=== PATIENT | male | born 1950 ===

== ENCOUNTER 2018-06-16 01:33 | Inpatient (IN) | payer OTHER ==
[~2018-06-16] VITALS: Ht 180.3 cm; Wt 120.2 kg
[2018-06-16] MEDS ORDERED: COZAAR100 MG (01:56)
[2018-06-16] MEDS ORDERED: VERAPAMIL ER240 MG (01:56)
[2018-06-16] MEDS ORDERED: TOPROL XL100 M1 (01:56)
[2018-06-16] MEDS ORDERED: ASA81 MG (01:57)
[2018-06-16] MEDS ORDERED: GLIMEPIRIDE2 MG (01:57)
[2018-06-16] MEDS ORDERED: NEURONTIN300 MG (01:57)
[2018-06-16] MEDS ORDERED: CARDURA XL4 MG (01:59)
== END 2018-06-29 13:12 | disposition home or self-care (01) | DRG 281 ==
LOC: ER 01:33 → ICU 18:26 → ICU-2 18:26 → ICU 06-19 15:29 → MEDI 06-24 14:10
PROC: 4A033R1 Measurement of Arterial Saturation, Peripheral, Percutaneous Approach (ICD-10-PCS; 2018-06-16)
PROC: B246ZZZ Ultrasonography of Right and Left Heart (ICD-10-PCS; 2018-06-18)
PROC: 4A12X4Z Monitoring of Cardiac Electrical Activity, External Approach (ICD-10-PCS; 2018-06-24)
PROC: 0H96XZZ Drainage of Back Skin, External Approach (ICD-10-PCS; principal; 2018-06-27)
DX: I21.29 ST elevation (STEMI) myocardial infarction involving other sites (principal); J90 Pleural effusion, not elsewhere classified; I13.0 Hypertensive heart and chronic kidney disease with heart failure and stage 1 through stage 4 chronic kidney disease, or unspecified chronic kidney disease; N17.8 Other acute kidney failure; I50.89 Other heart failure; E78.49 Other hyperlipidemia; I73.89 Other specified peripheral vascular diseases; E66.01 Morbid (severe) obesity due to excess calories; N18.3 Chronic kidney disease, stage 3 (moderate); J44.9 Chronic obstructive pulmonary disease, unspecified; L72.0 Epidermal cyst; G47.39 Other sleep apnea; B95.7 Other staphylococcus as the cause of diseases classified elsewhere